=== PATIENT | male | born 1960 | race Caucasian/White ===

== ENCOUNTER 2016-12-27 12:18 | Emergency (ER) | payer OTHER, MEDICAID ==
[2016-12-27 12:44] VITALS: BP 111/82; PULSE 109; RESP 18; TEMP 97.9; O2SAT 94
--- NOTE | 2016-12-27 14:22 | UCPHY ---
H & P Time Seen by Provider: 12/27/16 13:37 Patient Type: Established HPI/ROS: HPI Injury to left foot or ankle. 56-year-old developmentally delayed male here with his caregiver. Patient has a history of a seizure disorder. Caregiver reports that he likely had a seizure and fell out of his bed at 5:00 a.m.. His caregiver was able to get him up and get him to his morning activities but he was complaining of left foot pain. The caregiver reports that he fell out of bed onto a carpeted floor. The caregiver reports there was some vomit in the bed. The patient has otherwise been at his baseline neurologic status and mental status. His only complaint has been the left foot pain. He has not had any further vomiting. He is prone to having breakthrough seizures according to his caregiver. There is no other complaint. ROS: Constitutional: No fever, no chills. No weakness. Musculoskeletal: No back pain. No neck pain. Left foot pain. No other extremity pain. Skin: No rashes. Neurological: No headache. No focal weakness or altered sensation. Review of systems limited on this patient. Past medical history: Epilepsy, gynecomastia, cataracts, developmental delay. Social history: Has caregiver. With caregiver currently. Physical Exam: General Appearance: Alert, no distress. He is sitting in a wheelchair. This patient is responding to questions appropriately and in full sentences. This patient appears well-hydrated and well-nourished. Head: Normocephalic atraumatic. Face: Facial bones are stable on palpation. Eyes: Pupils equal and round and reactive to light, no pallor or injection. No lid erythema or edema. ENT, Mouth: Mucous membranes moist. Dentition is intact. No malocclusion of the jaw. No tongue lacerations or abrasions. Pharynx is clear. The bilateral nasal canals are clear. No septal hematoma. Respiratory: There are no retractions, lungs are clear to auscultation with good air movement bilaterally. Chest wall is stable to AP and lateral palpation. Cardiovascular: Regular rate and rhythm. No murmur. Gastrointestinal: Abdomen is soft and nontender, no masses, bowel sounds normal. Neurological: Motor sensory function is intact. Cranial nerves are normal. Cerebellar function intact. Skin: Warm and dry, no rashes. No lacerations, abrasions or contusions. Musculoskeletal: Neck is supple and nontender. The trachea is midline. No midline cervical, thoracic, lumbar or sacral tenderness on palpation. No flank tenderness on palpation. Left foot exam he has some tenderness over the mid dorsal lateral aspect of the left foot. There is no bony deformity or step-off noted on palpation of this area. No ecchymosis or swelling. The left ankle is nontender on palpation, without gross deformity and without ecchymosis or swelling. Otherwise, extremities are symmetrical, full range of motion. All joints in the bilateral upper and bilateral lower extremities range without pain or impingement except noted. No tenderness on palpation of the long bones in the bilateral upper and bilateral lower extremities except noted. Psychiatric: No agitation. No depression. Database: EKG: Imaging: Left foot and ankle x-ray series: Negative for fracture, subluxation , dislocation. Interpreted by me. Procedures: Emergency department course: X-rays discussed with his caregiver. The left foot was placed in a Krueger boot. Plan will be to have him followed up by his primary care physician in 1- 2 days for re-evaluation and orthopedic referral as needed. Follow-up was discussed with the caregiver. Return to emergency department precautions reviewed. The patient is in a wheelchair. Acute traumatic brain injury unlikely. Other significant traumatic injury unlikely. Patient discharged in good condition with his child care director. Differential Diagnosis: The differential diagnosis on this patient includes but is not limited to left foot sprain, probable breakthrough seizure earlier this morning. Fracture, subluxation, dislocation, other significant traumatic injury unlikely. This represents a partial list of diagnoses considered. These considerations are based on history, physical exam, past history, reassessment and diagnostic testing. Smoking Status: Never smoked Constitutional: Initial Vital Signs Temperature (C) 36.6 C 12/27/16 12:35 Heart Rate 109 H 12/27/16 12:35 Respiratory Rate 18 12/27/16 12:35 Blood Pressure 111/82 H 12/27/16 12:35 O2 Sat (%) 94 12/27/16 12:35 O2 Delivery Mode Room Air Allergies/Adverse Reactions: No Known Allergies Allergy (Verified 12/27/16 12:38) Home Medications: Medication Instructions Recorded Calcium 12/27/16 Calmoseptine Ointment 12/27/16 Divalproex 12/27/16 Fluticasone Nasal 12/27/16 Keppra 12/27/16 Loratadine 12/27/16 Terbinafine 12/27/16 Trazodone HCl 12/27/16 Ventolin Hfa Inhaler 12/27/16 Vitamin D2 12/27/16 Departure - Departure Disposition: Home, Routine, Self-Care Clinical Impression: Sprain of left foot Condition: Good Instructions: Foot Sprain (ED) Additional Instructions: Read and follow provided instructions. Follow-up with your primary care physician in 1-2 days for re-evaluation. Your primary care physician can refer the patient to an ultrasound applications specialist as needed. Return to the emergency department for worsening pain, discoloration or other serious concerns. Referrals: [facility] [Other] - As per Instructions - PQRS PQRS Measurement: Not applicable.
== END 2016-12-27 14:44 | disposition home or self-care (01) ==
LOC: CED 12:18
DX: S93.402A Sprain of unspecified ligament of left ankle, initial encounter (principal); W06.XXXA Fall from bed, initial encounter; Y92.003 Bedroom of unspecified non-institutional (private) residence as the place of occurrence of the external cause
CPT/HCPCS: 73610; 73630; G0463; L4386; 99214-PO

== ENCOUNTER 2017-04-09 12:29 | Emergency (ER) | payer OTHER, MEDICAID ==
[2017-04-09 12:46] VITALS: RESP 16; O2SAT 97
--- NOTE | 2017-04-09 12:55 | EDPHY ---
H & P Stated Complaint: pt fell walking and hit head on drywall/scrapes/denies neck pain/loc or oth HPI/ROS: HPI CHIEF COMPLAINT: Fall, head injury HISTORY OF PRESENT ILLNESS: This patient 57-year-old male, history of glaucoma , urethral stricture, seizure disorder, Mentally Challenged, lives in a custodial with a advanced seal delivery system, he had unwitnessed fall today. With head strike against a wall. He has a hematoma to the top of his head. He is minimally verbal. He denies any complaints at this time. Per the caretakers neurological exam is at baseline. Denies neck pain. Chest pain or shortness of breath. No seizure activity witnessed and no post ictal state. Per the advanced seal delivery system tetanus shot is up-to-date. Rag Production Worker bedside does tell me that he is a fall risk and falls often. This was unwitnessed fall but no seizure activity no postictal state. Past Medical History: Gynecomastia, seizure disorder, mentally challenged Past Surgical History: No recent surgical history Social History: Lives in a custodial, advanced seal delivery system bedside Family History: Noncontributory ROS REVIEW OF SYSTEMS: A comprehensive 10 point review of systems is otherwise negative aside from elements mentioned in the history of present illness. Exam Constitutional appears well nontoxic, triage nursing summary reviewed, vital signs reviewed, awake/alert. Eyes normal conjunctivae and sclera, EOMI, PERRLA. HENT head/neck: Hematoma to the forehead with abrasion, hematoma to the top of the scalp, otherwise unremarkable head and neck exam, no midline cervical spine pain, no step-offs, no crepitus moist mucus membranes, no epistaxis, neck supple/ no meningismus, no raccoon eyes. Respiratory clear to auscultation bilaterally, normal breath sounds, no respiratory distress, no wheezing. Cardiovascular rate normal, regular rhythm, no murmur, no edema, distal pulses normal. Gastrointestinal soft, non-tender, no rebound, no guarding, normal bowel sounds, no distension, no pulsatile mass. Genitourinary no CVA tenderness. Musculoskeletal no midline vertebral tenderness, full range of motion, no calf swelling, no tenderness of extremities, no meningismus, good pulses, neurovascularly intact. Skin pink, warm, & dry, no rash, skin atraumatic. Neurologic at neurological baseline, awake, alert, moves all extremities.. Psychiatric normal mood/affect. Heme/Lymph/Immune no lymphadenopathy. Differential Diagnosis: Includes but is not limited to in a particular, fall, closed head injury, concussion, intracranial bleed, skull fracture, soft tissue injury, scalp contusion Medical Decision Making: Plan for this patient CT head without contrast for trauma. Re-evaluation: CT scan of the head without IV contrast for trauma. The results of the study are negative for acute traumatic injury The study was read by Dr. Castro I viewed the images myself on the PACS system. Source: Patient - Personal History Current Tetanus/Diphtheria Vaccine: Yes Tetanus Vaccine Date: within 10 years - Medical/Surgical History Hx Asthma: No Hx Chronic Respiratory Disease: No Hx Diabetes: No Hx Cardiac Disease: No Hx Renal Disease: No Hx Cirrhosis: No Hx Alcoholism: No Hx HIV/AIDS: No Hx Splenectomy or Spleen Trauma: No Other PMH: CATARACT, EPILEPSY, GYNECOMASTIA, ASPIRATION, INCONTINENCE, DEV DELAY , OSTEOPENIA, URETHRAL STRICTURE hpylori/ulcers - Social History Smoking Status: Never smoked Constitutional: Initial Vital Signs Temperature (C) 36.9 C 04/09/17 12:42 Heart Rate 93 04/09/17 12:42 Respiratory Rate 16 04/09/17 12:42 Blood Pressure 122/89 H 04/09/17 12:42 O2 Sat (%) 97 04/09/17 12:42 O2 Delivery Mode Room Air Allergies/Adverse Reactions: No Known Allergies Allergy (Verified 04/09/17 12:39) Home Medications: Medication Instructions Recorded Calcium 12/27/16 Calmoseptine Ointment 12/27/16 Divalproex 12/27/16 Fluticasone Nasal 12/27/16 Keppra 12/27/16 Loratadine 12/27/16 Terbinafine 12/27/16 Trazodone HCl 12/27/16 Ventolin Hfa Inhaler 12/27/16 Vitamin D2 12/27/16 AMOXICILLIN 04/09/17 Clarithromycin 04/09/17 Omeprazole 04/09/17 Oxybutynin 04/09/17 Departure - Departure Disposition: Home, Routine, Self-Care Clinical Impression: Fall Qualifiers: Encounter type: initial encounter Qualified Code(s): W19.XXXA - Unspecified fall, initial encounter Head injury Qualifiers: Encounter type: initial encounter Qualified Code(s): S09.90XA - Unspecified injury of head, initial encounter Condition: Good Instructions: Fall Prevention for Older Adults (ED), Head Injury (ED), Concussion (ED) Additional Instructions: 1. Return emergency room if you have any worsening symptoms questions or concerns includes severe headache, vomiting or not acting right. Seizures.
[2017-04-09 14:14] VITALS: BP 115/83; PULSE 72; TEMP 98.6
== END 2017-04-09 14:14 | disposition home or self-care (01) ==
LOC: CED 12:29
DX: S09.90XA Unspecified injury of head, initial encounter (principal); W01.198A Fall on same level from slipping, tripping and stumbling with subsequent striking against other object, initial encounter; Y92.89 Other specified places as the place of occurrence of the external cause
CPT/HCPCS: 70450-PO

== ENCOUNTER 2017-05-18 15:56 | Emergency (ER) | payer OTHER, MEDICAID ==
[2017-05-18 16:16] VITALS: BP 129/94; PULSE 71; RESP 18; TEMP 97.7; O2SAT 96
--- NOTE | 2017-05-18 17:22 | EDPHY ---
H & P Time Seen by Provider: 05/18/17 16:34 HPI/ROS: This patient is developmentally delayed and not effectively verbal. He is brought in by his school childcare attendant, Zev for evaluation of left hand swelling that he noticed over the last 24 hours. There is also a contusion in the center of the area of swelling-dorsum of left hand. His sales and service engineer reports that it does not seem to be causing him pain. The sales and service engineer is unaware of any specific trauma to the area. Patient has history of a fracture in 2013 of the same hand- small fracture to metacarpal or finger per sales and service engineer. ROS: No fevers or chills. Musculoskeletal: No other extremity complaints or swelling. Again no known trauma. Neuro: Patient is at baseline per sales and service engineer terms of movement of mood. 5 point ROS is otherwise negative Past Medical/Surgical History: Developmentally delayed-is unable to communicate symptoms. Smoking Status: Never smoked Physical Exam: Physical Exam Vital signs are normal. General: No acute distress HEENT: Atraumatic. Eyes: Pupils equal and react to light. Extraocular motions are intact. Lungs: No respiratory distress. Cardiac: Brisk capillary refill is intact throughout. Extremities: Atraumatic normal except for left hand Left hand: Patient has mild swelling to the dorsum of the hand over the metacarpals with a nickel size contusion in the center of this that is mild. He does not wince with compression of the hand. He does not withdraw his hand. There is no evidence of wrist deformity or ecchymosis or tenderness to the wrist. Skin: No rash or pallor. No erythema or warmth to touch to the affected hand. Neuro: Alert with no overt sensorimotor deficits to the affected hand. Initial differential diagnosis: Hand contusion versus fracture versus sprain Constitutional: Initial Vital Signs Temperature (C) 36.5 C 05/18/17 16:12 Heart Rate 71 05/18/17 16:12 Respiratory Rate 18 05/18/17 16:12 Blood Pressure 129/94 H 05/18/17 16:12 O2 Sat (%) 96 05/18/17 16:12 O2 Delivery Mode Room Air Allergies/Adverse Reactions: No Known Allergies Allergy (Verified 05/18/17 16:15) Home Medications: Medication Instructions Recorded Calcium 12/27/16 Calmoseptine Ointment 12/27/16 Divalproex 12/27/16 Fluticasone Nasal 12/27/16 Keppra 12/27/16 Loratadine 12/27/16 Terbinafine 12/27/16 Trazodone HCl 12/27/16 Ventolin Hfa Inhaler 12/27/16 Vitamin D2 12/27/16 AMOXICILLIN 04/09/17 Clarithromycin 04/09/17 Omeprazole 04/09/17 Oxybutynin 04/09/17 MDM/Departure - MDM Diagnostics: Hand x-ray: Evidence of old fracture of base of proximal phalanx 3rd through 5th finger very small. No acute fractures are appreciated. Imaging Results: Imaging Impressions Hand X-Ray 05/18/17 16:18 Impression: Negative for acute abnormality. Degenerative changes. Healed fifth metacarpal fracture. Imaging: I viewed and interpreted images myself ED Course/Re-evaluation: I counseled sales and service engineer regarding patient's hand contusion-no evidence of acute fracture or other concerning findings. Suggested treating him with ice and elevation. Appreciate no other evidence of trauma sales and service engineer seems entirely appropriate with patient. I do Not suspect any abuse - Depart Disposition: Home, Routine, Self-Care Clinical Impression: Contusion, hand Qualifiers: Encounter type: initial encounter Laterality: left Qualified Code(s): S60.222A - Contusion of left hand, initial encounter Condition: Good Instructions: Contusion in Adults (ED) Additional Instructions: Diagnosis: Hand contusion Plan: Ice 20 minutes at a time to 3 times a day for a few days. Elevate the hand when possible Symptoms should improve over the next 3-7 days. Referrals: NONE *PRIMARY CARE P,. [Primary Care Provider] - As per Instructions
== END 2017-05-18 17:34 | disposition home or self-care (01) ==
LOC: CED 15:56
DX: M79.81 Nontraumatic hematoma of soft tissue (principal)
CPT/HCPCS: 73130-PO

== ENCOUNTER 2017-08-21 18:33 | Emergency (ER) | payer OTHER, MEDICAID ==
[2017-08-21 18:51] VITALS: BP 113/68; PULSE 93; RESP 16; TEMP 97.7; O2SAT 97
--- NOTE | 2017-08-21 19:05 | EDPHY ---
H & P Time Seen by Provider: 08/21/17 18:47 HPI/ROS: This patient has a history of developmental delay and lives in adult shelter accompanied by his commercial lines account executive tonight after a minor head injury yesterday. The patient has very limited verbal capacity so the history is primarily by the commercial lines account executive. The commercial lines account executive explains I yesterday the patient went to abruptly sit into a chair that was farther back any anticipated and fell to the ground bumping his forehead against the ground. This was witnessed by the commercial lines account executive and there was no loss of consciousness. The patient immediately got up put his hand to his forehead weight sustained a minor abrasion from fall to carpeted floor. His behavior has been normal since the fall. The commercial lines account executive clean the abrasion with soapy water and applied bacitracin or similar antibacterial ointment. The care facility has a policy of having the patient evaluated after any head injury so today the commercial lines account executive brought the patient in by private vehicle for further evaluation. The patient is not indicated in the overt head pain. He has been eating and drinking normally. ROS: Limited by patient's baseline cognitive limitations but provided as possible by his commercial lines account executive Constitutional: No fevers or other complaints HEENT: No nasal injury or epistaxis. No dental injuries noted by commercial lines account executive. No other complaints Neuro: No apparent headache. No seizure activity. No other complaints Musculoskeletal: No apparent neck or back pain he is walking without difficulty since the event. Pulmonary: No difficulty breathing. No evidence shortness of breath since the fall Cardiovascular: No pallor. Integumentary: Abrasion of forehead as per HPI. Otherwise negative GI: No vomiting 10 point ROS is otherwise negative Past Medical/Surgical History: Developmentally delayed Seizures-generalized tonic-clonic GERD Smoking Status: Never smoked Physical Exam: Physical exam: Vital signs are normal General: Patient is in no acute distress. HEENT: Is no external evidence of trauma on exam except for 2 very superficial abrasions 3 cm and 2 cm circular located just left of center patient forehead with a very small hematoma underlying the 2 cm abrasion with no underlying bony tenderness or step-off. Nose atraumatic. Ears: Clear bilaterally with no hemotympanum. Oropharynx: No dental trauma or malocclusion. No intraoral lacerations. Eyes: Pupils are equal and reactive to light. Extraocular motions are intact. Optic fundi: Poorly visualized due to poor cooperation Neck: Trachea is midline with no stridor. The patient has no midline neck tenderness and retains a full range of motion without increase in pain. Lungs: Clear to auscultation bilaterally no chest wall tenderness Cardiac: Regular rate and rhythm no murmur gallop or rub. Abdomen: Soft and nontender Back: Nontender Extremities: Atraumatic Neuro: Patient is alert.. Cranial nerves II through XII grossly intact. Cerebellar exam is normal as judged by ability to ambulate at baseline. No sensory or motor deficits are appreciated. Initial differential diagnosis: Minor head injury with forehead abrasions. Doubt concussion. Doubt cerebral contusion. No clinical evidence of bony injury or other concerning findings Constitutional: Initial Vital Signs Temperature (C) 36.5 C 08/21/17 18:47 Heart Rate 93 08/21/17 18:47 Respiratory Rate 16 08/21/17 18:47 Blood Pressure 113/68 08/21/17 18:47 O2 Sat (%) 97 08/21/17 18:47 O2 Delivery Mode Room Air Allergies/Adverse Reactions: No Known Allergies Allergy (Verified 05/18/17 16:15) Home Medications: Medication Instructions Recorded Calcium 12/27/16 Calmoseptine Ointment 12/27/16 Divalproex 12/27/16 Keppra 12/27/16 Loratadine 12/27/16 Trazodone HCl 12/27/16 Ventolin Hfa Inhaler 12/27/16 Vitamin D2 12/27/16 Omeprazole 04/09/17 Oxybutynin 04/09/17 ACETAMINOPHEN 08/21/17 MDM/Departure - [facility] ED Course/Re-evaluation: Patient's neuro exam is limited by his significant baseline cognitive deficits but no focal deficits are appreciated. Similarly, the patient's behaviors been entirely baseline per report of the commercial lines account executive. Appreciate no evidence of bony injury on exam or other concerning findings. Patient's caretakers given head injury precaution instructions with a plan to use Tylenol if he seems to indicate any discomfort and also he is instructed in wound care of the minor forehead abrasions. - Depart Disposition: Home, Routine, Self-Care Clinical Impression: Minor head injury without loss of consciousness Qualifiers: Encounter type: initial encounter Qualified Code(s): S09.90XA - Unspecified injury of head, initial encounter Forehead abrasion Qualifiers: Encounter type: initial encounter Qualified Code(s): S00.81XA - Abrasion of other part of head, initial encounter Condition: Good Instructions: Head Injury (ED), Abrasion (ED) Additional Instructions: Diagnosis: 1. Minor head injury 2. Forehead abrasion Plan: Clean abrasions daily and apply antibacterial ointment Tylenol if he seems to be having headache. Return emergency department if he develops any significant change behavior, has seizure, vomits more than once or other for other concerns. Referrals: NONE *PRIMARY CARE P,. [Primary Care Provider] - As per Instructions
== END 2017-08-21 19:15 | disposition home or self-care (01) ==
LOC: CED 18:33
DX: S00.81XA Abrasion of other part of head, initial encounter (principal); W07.XXXA Fall from chair, initial encounter; Y92.89 Other specified places as the place of occurrence of the external cause

== ENCOUNTER 2017-09-09 05:46 | Emergency (ER) | payer OTHER, MEDICAID ==
[2017-09-09 06:05] VITALS: TEMP 97.5; O2SAT 98
--- NOTE | 2017-09-09 06:07 | EDPHY ---
H & P <Martin Moreno Marlys - Last Filed: 09/09/17 08:50> Smoking Status: Never smoked <Melia Bruner - Last Filed: 09/09/17 23:37> Time Seen by Provider: 09/09/17 05:50 HPI/ROS: CC: Forehead abrasion and neck pain status post unwitnessed fall out of bed HPI: This 57-year-old developmentally delayed male who lives in a [facility] with a patient advocate presents with his patient advocate today after having an unwitnessed fall out of bed just prior to arrival. The caregiver states he heard the thump and he went immediately to the patient's room and he was sitting on the floor. He does not think he had a loss of consciousness. The patient is a poor historian due to his underlying condition and answers no to just about every question. However he did answer what sounded like a yes when asked if he had neck discomfort from the fall. He has an abrasion on his forehead and nose. The caregiver states the patient is on Augmentin for a urinary tract infection. He last had his valproic acid level checked approximately 6 months ago according to the caregiver and he has an appointment with his neurologist on October 12. He has had no other recent illness. Tetanus immunization is up-to -date per caregiver. REVIEW OF SYSTEMS: Constitutional: No fever, no chills. Eyes: No discharge. ENT: No difficulty swallowing. Respiratory: No cough, no shortness of breath. Cardiac: No chest pain, no palpitations. Gastrointestinal: No abdominal pain, no vomiting. Genitourinary: See HPI. Musculoskeletal: See HPI. Skin: See HPI. Neurological: See HPI. (Melia Bruner) Past Medical/Surgical History: Past medical history includes gynecomastia, seizure disorder, developmental delay, urethral stricture, osteoporosis, osteopenia Past surgical history includes eye procedure Family history noncontributory No known drug allergies Medications reviewed and include divalproex acid Primary care provider Dr. Meghna Fernandez and neurologist Dr. Segura (Melia Bruner) Social History: Does not smoke. Lives in a usp. (Melia Bruner) Physical Exam: General Appearance: Alert, minimal distress. HEENT: Normocephalic, abrasion to the mid and left forehead with minimal soft tissue swelling, pupils equally round ENT, Mouth: Mucous membranes are moist. Respiratory: There are no retractions, lungs are clear to auscultation. Cardiovascular: Regular rate and rhythm. Gastrointestinal: Abdomen is soft and nontender, no masses, bowel sounds normal. Neurological: Awake and alert. Mostly nonverbal. Skin: Warm and dry. Musculoskeletal: Neck is supple, mild tenderness to palpation. Extremities: Possible tenderness left hip to pelvic rock (unreliable exam). Psychiatric: There is no agitation. DIFFERENTIAL DIAGNOSIS: After history and physical exam differential diagnosis was considered for but not limited to: Mechanical fall, Supratherapeutic Valproic Acid Level, Intracranial injury, nasal fracture, Cervical Spine fracture, Hip or Pelvis fracture. (Melia Bruner) Constitutional: Initial Vital Signs Temperature (C) 97.5 F 09/09/17 05:50 Heart Rate 86 09/09/17 05:50 Respiratory Rate 18 09/09/17 05:50 Blood Pressure 100/72 09/09/17 05:50 O2 Sat (%) 98 09/09/17 05:50 O2 Delivery Mode Room Air Allergies/Adverse Reactions: No Known Allergies Allergy (Verified 05/18/17 16:15) Home Medications: Medication Instructions Recorded Amox-Clav 500-125 mg Tablet 09/09/17 CALCIUM 09/09/17 Calmoseptine Ointment 09/09/17 Divalproex 09/09/17 Flonase Nasal [place] 09/09/17 IBUPROFEN 09/09/17 IMODIUM A-D 09/09/17 LAMISIL 09/09/17 LEVETIRACETAM 09/09/17 Loratadine 09/09/17 Omeprazole 09/09/17 Oxybutynin Chloride 09/09/17 Tylenol 09/09/17 VITAMIN D 09/09/17 Ventolin Hfa 09/09/17 traZODone 09/09/17 Medical Decision Making - Diagnostics Imaging: Discussed imaging studies w/ call or contact centre manager Radiologist <Martin Moreno - Last Filed: 09/09/17 08:50> <Melia Bruner - Last Filed: 09/09/17 23:37> - Diagnostics Imaging Results: Imaging Impressions Hip X-Ray 09/09/17 06:07 Impression: No evidence for acute fracture left hip. Pelvis X-Ray 09/09/17 06:07 Impression: No evidence for acute fracture. ED Course/Re-evaluation: 7:[address] and x-rays are reassuring. He has no other complaints. He is moving all extremities and baseline mental status. His abrasion was cleaned and dressed. Will discharge him home. They do not wish to wait for the valproic acid level. We will call them with results and advice whether or not he will need to increase his dose. Staff is not suspicious of seizure. 8:30 a.m. the patient's valproic acid level is normal. His home was called and notified. (aMrtin Moreno) The patient was seen and examined, vital signs reviewed. A CBC, basic metabolic panel, valproic acid level, CT of the head and cervical spine, and plain films of the left hip pelvis were ordered. The patient was signed out to Dr. Martin Moreno pending these results. (Melia Bruner) Differential Diagnosis: Partial list of the Differential diagnosis considered include but were not limited to; fall, abrasion, and although unlikely based on the history and physical exam, I also considered head injury, neck injury, seizure, acute coronary disease . (Martin Moreno) - Data Points Laboratory Results: Laboratory Results 09/09/17 06:25 09/09/17 06:25 Departure <Martin Moreno - Last Filed: 09/09/17 08:50> <Melia Bruner - Last Filed: 09/09/17 23:37> - Departure Disposition: Home, Routine, Self-Care Clinical Impression: Abrasion Fall Qualifiers: Encounter type: initial encounter Qualified Code(s): W19.XXXA - Unspecified fall, initial encounter Condition: Fair Instructions: Fall Prevention (ED) Referrals: MEGHNA MINER [Other] - As per Instructions
[2017-09-09 06:30] LABS: % IMMATURE GRANULYOCYTES 1.7 % (0.0-1.1); ABSOLUTE IMMATURE GRANULOCYTES 0.12 10^3/uL (0.00-0.10); ADD DIFF? NO; ADD MORPH? NO; ADD SCAN? NO; ATYPICAL LYMPHOCYTE FLAG 0 (0-99); FRAGMENT RBC FLAG 0 (0-99); HEMATOCRIT 43.3 % (40.0-51.0); HEMOGLOBIN 14.2 g/dL (13.7-17.5); LEFT SHIFT FLG 10 (0-99); LIPEMIA HEMOLYSIS FLAG 80 (0-99); MEAN CELL HEMOGLOBIN 29.3 pg (27.9-34.1); MEAN CELL HEMOGLOBIN CONCENTR. 32.8 g/dL (32.4-36.7); MEAN CELL VOLUME 89.3 fL (81.5-99.8); MEAN PLATELET VOLUME 9.1 fL (8.7-11.7); PLATELET CLUMPS FLAG 40 (0-99); PLATELET COUNT 173 10^3/uL (150-400); RED BLOOD CELL COUNT 4.85 10^6/uL (4.40-6.38); RED CELL DISTRIBUTION WIDTH 14.2 % (11.5-15.2)
[2017-09-09 06:45] LABS: ALANINE AMINOTRANSFERASE 15 IU/L (21-72); ALBUMIN 2.9 g/dL (3.5-5.0); ALKALINE PHOSPHATASE 59 IU/L (38-126); ANION GAP 13 mEq/L (8-16); ASPARTATE AMINOTRANSFERASE 13 IU/L (17-59); BILIRUBIN,TOTAL 0.2 mg/dL (0.1-1.4); BILIRUBIN-UNCONJUGATED 0.2 mg/dL (0.0-1.1); CALCIUM 9.3 mg/dL (8.5-10.4); CARBON DIOXIDE 25 mEq/l (22-31); CHLORIDE 101 mEq/L (97-110); CREATININE 0.6 mg/dL (0.7-1.3); GLOMERULAR FILTRATION RATE > 60; GLUCOSE 78 mg/dL (70-100); POTASSIUM 4.1 mEq/L (3.5-5.2); SODIUM 139 mEq/L (134-144); TOTAL PROTEIN 6.7 g/dL (6.3-8.2)
[2017-09-09 08:32] VITALS: BP 104/70; PULSE 78; RESP 20
== END 2017-09-09 07:30 | disposition home or self-care (01) ==
LOC: CED 05:46
DX: S00.81XA Abrasion of other part of head, initial encounter (principal); W06.XXXA Fall from bed, initial encounter; Y92.009 Unspecified place in unspecified non-institutional (private) residence as the place of occurrence of the external cause
CPT/HCPCS: 70450-PO; 72125-PO; 72170-PO; 73502-PO; 80048-PO; 80076-PO; 85025-PO

== ENCOUNTER 2017-12-27 16:02 | Emergency (ER) | payer OTHER, MEDICAID ==
[2017-12-27 16:13] VITALS: BP 151/74; PULSE 87; RESP 18; TEMP 97.7; O2SAT 96
--- NOTE | 2017-12-27 16:32 | EDPHY ---
H & P Time Seen by Provider: 12/27/17 16:17 HPI/ROS: This patient is developmentally delayed, minimally verbal accompanied by his health claims examiner Zev who cares for him in [facility] [place]. The patient apparently tripped and fell with an abrasion to his forehead. This was unwitnessed by the health claims examiner. The incident occurred few hours prior to arrival the patient has been behaving normally since that time. ROS: Neuro: No agitation per his health claims examiner. No change in his baseline behaviors. Integumentary: No other lacerations abrasions were noted by the health claims examiner GI: No vomiting Musculoskeletal: No other complaints 7 point ROS is limited due to the patient's baseline difficulty with communication the developmental delay but is otherwise negative. Past Medical/Surgical History: Developmental delay Smoking Status: Never smoked Physical Exam: Physical exam: Vital signs are normal General: Patient is in no acute distress. HEENT: The patient has a superficial abrasion to the right forehead without underlying hematoma, deformity bony step-off or significant bony tenderness. Nose atraumatic. Ears: Clear bilaterally with no hemotympanum. Oropharynx: No dental trauma or malocclusion. No intraoral lacerations. Eyes: Pupils are equal and reactive to light. Extraocular motions are intact. Optic fundi: Clear with no papilledema or hemorrhage. Neck: Trachea is midline with no stridor. The patient has no midline neck tenderness and retains a full range of motion without increase in pain. Lungs: Clear to auscultation bilaterally Cardiac: Regular rate and rhythm no murmur gallop or rub. Chest: Nontender. Abdomen: Soft nontender no organomegaly Back: Nontender Extremities: Atraumatic Neuro: The patient is alert. He has 5/5 strength throughout all extremities. No sensory or motor deficits are appreciated. Initial differential diagnosis: Abrasion, minor head injury, concussion Constitutional: Initial Vital Signs Temperature (C) 36.5 C 12/27/17 16:11 Heart Rate 87 12/27/17 16:11 Respiratory Rate 18 12/27/17 16:11 Blood Pressure 151/74 H 12/27/17 16:11 O2 Sat (%) 96 12/27/17 16:11 O2 Delivery Mode Room Air Allergies/Adverse Reactions: No Known Allergies Allergy (Verified 12/27/17 16:11) Home Medications: Medication Instructions Recorded Amox-Clav 500-125 mg Tablet 09/09/17 CALCIUM 09/09/17 Calmoseptine Ointment 09/09/17 Divalproex 09/09/17 Flonase Nasal [place] 09/09/17 IBUPROFEN 09/09/17 IMODIUM A-D 09/09/17 LAMISIL 09/09/17 LEVETIRACETAM 09/09/17 Loratadine 09/09/17 Omeprazole 09/09/17 Oxybutynin Chloride 09/09/17 Tylenol 09/09/17 VITAMIN D 09/09/17 Ventolin Hfa 09/09/17 traZODone 09/09/17 MDM/Departure - MDM ED Course/Re-evaluation: Discussion: Patient with forehead abrasion and unwitnessed fall. Given his minimal verbal status evaluation of potential head injuries difficult without any change in behavior with minimal findings on physical exam I do not feel this patient requires CT imaging or further workup at this time. Counseled his health claims examiner Zev to return emergency department should there be any significant change in his patient's baseline behavior. I instructed him T give the patient Tylenol if he seems of mild discomfort. The patient's wound was clean by our tech, bacitracin and Band-Aid applied. - Depart Disposition: Home, Routine, Self-Care Clinical Impression: Forehead abrasion Qualifiers: Encounter type: initial encounter Qualified Code(s): S00.81XA - Abrasion of other part of head, initial encounter Condition: Good Instructions: Head Injury (ED), Abrasion (ED) Additional Instructions: Diagnosis: Forehead abrasion Plan: Clean abrasion daily. Tylenol if he seems to be having pain Return to the emergency department if he develops agitation, confusion, vomiting more than once or other concerns. Referrals: NONE *PRIMARY CARE P,. [Primary Care Provider] - As per Instructions
== END 2017-12-27 16:40 | disposition home or self-care (01) ==
LOC: CED 16:02
DX: S00.81XA Abrasion of other part of head, initial encounter (principal); W01.0XXA Fall on same level from slipping, tripping and stumbling without subsequent striking against object, initial encounter

== ENCOUNTER 2018-06-24 19:57 | Emergency (ER) | payer OTHER, MEDICAID ==
--- NOTE | 2018-06-24 21:33 | EDPHY ---
H & P Time Seen by Provider: 06/24/18 20:19 HPI/ROS: This patient with developmental delay minimally verbal is accompanied by his peanut roaster who witness this patient's fall in the group living facility with the patient attempted to sit down a chair but missed the chair and then his left leg fold under him he landed on top of it. Since that injury 3 hr ago patient had ibuprofen Tylenol partial relief but still has an antalgic gait and seems to indicate the source of pain to the left lateral leg. If not entirely clear to his peanut roaster if the patient's pain is originating from the knee or the leg. No other injuries. Perioperative Educator brought him in by private vehicle. ROS: Limited due to patient's nonverbal status Musculoskeletal: No other apparent injuries HEENT: No facial injuries Neuro: Patient did not have a head injury per peanut roaster who witness the fall. Integumentary: No lacerations or abrasions appreciated by peanut roaster 7 point ROS as well eyes negative besides was indicated in HPI and ROS. Past Medical/Surgical History: Developmental delay Smoking Status: Never smoked Physical Exam: Physical Exam Vital signs are normal. General: No acute distress HEENT: Atraumatic. Eyes: Pupils equal and react to light. Extraocular motions are intact. Lungs: No respiratory distress. Cardiac: Brisk capillary refill is intact throughout. Pulses are 2+ and symmetric in the affected extremity. Skin: No rash or pallor. Extremities: Atraumatic normal except for left lower extremity Left lower extremity: Patient has mild left lateral leg tenderness with contusion. It is difficult to ascertain if he has left knee tenderness that he retains good range of motion with no effusion. Franca's is negative for laxity. Varus and valgus stress without laxity or parent increase in pain. No patellar swelling or tenderness. Neuro: Alert with no gross deficits. Initial differential diagnosis: Leg contusion, fibular fracture, knee sprain, tibial plateau fracture Constitutional: Initial Vital Signs Temperature (C) 36.5 C 06/24/18 20:14 Respiratory Rate 77 H 06/24/18 20:14 Blood Pressure 146/90 H 06/24/18 20:14 O2 Sat (%) 95 06/24/18 20:14 O2 Delivery Mode Room Air Allergies/Adverse Reactions: No Known Allergies Allergy (Verified 12/27/17 16:11) Home Medications: Medication Instructions Recorded CALCIUM 12/02/17 Calmoseptine Ointment 09/09/17 Divalproex 09/09/17 Flonase Nasal [place] 09/09/17 IBUPROFEN 09/09/17 IMODIUM A-D 09/09/17 LAMISIL 09/09/17 LEVETIRACETAM 09/09/17 Loratadine 09/09/17 Omeprazole 09/09/17 Oxybutynin Chloride 09/09/17 Tylenol 09/09/17 VITAMIN D 09/09/17 Ventolin Hfa 09/09/17 traZODone 09/09/17 MDM/Departure - MDM Imaging Results: Imaging Impressions Knee X-Ray 06/24/18 20:31 Impression: 1. No acute osseous abnormality seen left knee or left tibia and fibula. 2. Old healed fracture proximal fibular shaft. 3. Soft tissue swelling adjacent to the lateral malleolus. Consider lateral ankle sprain. Tibia/Fibula X-Ray 06/24/18 20:31 Impression: 1. No acute osseous abnormality seen left knee or left tibia and fibula. 2. Old healed fracture proximal fibular shaft. 3. Soft tissue swelling adjacent to the lateral malleolus. Consider lateral ankle sprain. Tib-fib x-rays: Negative for acute fracture by my interpretation Knee x-rays: Normal by my interpretation Imaging: I viewed and interpreted images myself ED Course/Re-evaluation: Michael wrap for comfort to the leg Discussion: Patient's findings are consistent with leg contusion without evidence of fracture or other significant abnormal findings/red flag findings. I counseled peanut roaster patient regarding this. I answered their questions prior to discharge home. The understand the need to return emergency department should he develop significant worsening of symptoms despite treatment plan of Tylenol and ibuprofen, Michael wrap for comfort - Depart Disposition: Home, Routine, Self-Care Clinical Impression: Contusion of leg Qualifiers: Encounter type: initial encounter Laterality: left Qualified Code(s): S80.12XA - Contusion of left lower leg, initial encounter Condition: Good Instructions: Contusion in Adults (ED) Additional Instructions: Diagnosis: Leg contusion Plan: Michael wrap for comfort for the next 2-5 days Ibuprofen Tylenol for discomfort as needed Symptoms should improve over the next 3-7 days. Return for any significant worsening despite treatment plan Follow up primary care physician for any symptoms that persist beyond the next week. Referrals: MEGHNA MINER [Other] - As per Instructions
[2018-06-24 22:06] VITALS: BP 133/94
== END 2018-06-24 21:55 | disposition home or self-care (01) ==
LOC: CED 19:57
DX: S80.12XA Contusion of left lower leg, initial encounter (principal); W19.XXXA Unspecified fall, initial encounter; Y92.9 Unspecified place or not applicable; Y93.9 Activity, unspecified; Y99.9 Unspecified external cause status
CPT/HCPCS: 73562-PO; 73590-PO

== ENCOUNTER 2018-09-12 17:22 | Emergency (ER) | payer OTHER, MEDICAID ==
--- NOTE | 2018-09-12 17:58 | EDPHY ---
H & P Stated Complaint: abrasion to top of head, fell in bathroom Time Seen by Provider: 09/12/18 17:25 HPI/ROS: CHIEF COMPLAINT: Fall HISTORY OF PRESENT ILLNESS: This is a 58-year-old gentleman with history of developmental delay, well known to this emergency department, who presents with his caregiver after a fall. Caregiver reports that the patient was in the bathroom when he heard a crash, when the caregiver arrived the patient was sitting on the floor with his back next to the sink, awake and alert. Patient has abrasions at the vertex of the head. He has been acting normally since the fall. The caregiver does note that over the last 2 weeks the patient has been more agitated than usual. They think it might have been related to a change in his medication, when his Depakote was decreased secondary to an elevated serum level. Patient has not been seen by his primary care physician over the last 2 weeks to investigate other reasons for his increased agitation. Caregiver notes that the patient does at baseline have gait issues and has fallen previously. No reports of chest pain. Caregiver notes no vomiting or diarrhea. No obvious shortness of breath. Patient's appetite has been normal. REVIEW OF SYSTEMS: Unobtainable secondary to the patient's baseline developmental delay. PAST MEDICAL HISTORY: Developmental delay, seizure disorder. SOCIAL HISTORY: Here with a caregiver that he lives with a full-time. Has been with this caregiver for 4 years. VITAL SIGNS Reviewed by me. GENERAL: Well-developed, well-nourished, follow simple commands. Unable to answer questions. HEENT: Superficial abrasions on the vertex of the scalp. Eyes: No icterus, no injection. Pupils equal round reactive to light. Mouth: moist mucous membranes. No intraoral trauma noted. Neck: supple with no adenopathy. Full range of motion. No step-off. Does not appear to be tender. LUNGS: Clear to auscultation bilaterally, no wheezes, rhonchi or rales. CARDIAC: Regular rate and rhythm, no rubs, murmurs or gallops. ABDOMEN: Soft, nontender, nondistended, bowel sounds normal. BACK: No CVA tenderness. EXTREMITIES: No trauma. No edema. Range of motion is normal throughout. Gait is normal per the caregiver. NEURO: Alert, no focal deficits noted. Caregiver notes that the patient's mentation seems normal. SKIN: Warm and dry, no rash. PSYCHIATRIC: Cooperative. - Personal History Tetanus Vaccine Date: within 10 years - Medical/Surgical History Hx Asthma: No Hx Chronic Respiratory Disease: No Hx Diabetes: No Hx Cardiac Disease: No Hx Renal Disease: No Hx Cirrhosis: No Hx Alcoholism: No Hx HIV/AIDS: No Hx Splenectomy or Spleen Trauma: No Other PMH: CATARACT, EPILEPSY, GYNECOMASTIA, ASPIRATION, INCONTINENCE, DEV DELAY , OSTEOPENIA, URETHRAL STRICTURE hpylori/ulcers, METACARPAL FX, GRAND MAL SZ, INCONTINENCE, KYPHOSIS - Social History Smoking Status: Never smoked Constitutional: Initial Vital Signs Temperature (C) 36.8 C 09/12/18 17:28 Heart Rate 72 09/12/18 17:28 Respiratory Rate 16 09/12/18 17:28 Blood Pressure 142/105 H 09/12/18 17:28 O2 Sat (%) 95 09/12/18 17:28 O2 Delivery Mode Room Air Allergies/Adverse Reactions: No Known Allergies Allergy (Verified 09/12/18 17:32) Home Medications: Medication Instructions Recorded CALCIUM 09/09/17 Calmoseptine Ointment 09/09/17 Divalproex 09/09/17 Flonase Nasal [place] 09/09/17 IBUPROFEN 09/09/17 IMODIUM A-D 09/09/17 LAMISIL 09/09/17 LEVETIRACETAM 09/09/17 Loratadine 09/09/17 Omeprazole 09/09/17 Oxybutynin Chloride 09/09/17 Tylenol 09/09/17 VITAMIN D 09/09/17 Ventolin Hfa 09/09/17 traZODone 09/09/17 ACETAMINOPHEN 09/12/18 Calmoseptine Ointment 09/12/18 Debrox Ear drops (*) 09/12/18 Sertraline HCl 09/12/18 Medical Decision Making - Diagnostics EKG Interpretation: 12-LEAD EKG: Please see the full report in [facility]. My interpretation: Normal sinus rhythm Imaging Results: Cervical Spine CT 09/12/18 17:45 Impression: Stable, chronically atrophic, head CT. No acute posttraumatic abnormality identified. 2. CT Cervical Spine Without Contrast History: Trauma. Fall. Technique: Multi-slice ultrathin single breath-hold helical CT through the neck from the skull base through the thoracic inlet without contrast. Soft tissue and bone window evaluation is performed. Sagittal and coronal reconstructions are obtained. Dose reduction techniques were utilized. Findings: The patient's head is tilted to the right and turned to the left. Alignment is anatomic. There is a mild mid cervical levoscoliosis. No fracture or dislocation is identified. There is degenerative disk space narrowing between C5 and C7. There is degenerative vacuum phenomenon between C6 and T1. There is anterior osteophyte formation and ossification of the anterior longitudinal ligament between C3 and T1. Facets are normally aligned and are intact. The skull base - C1 and C1-C2 relationships are normally aligned. 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 The odontoid process is intact. There is no evidence of a prevertebral or epidural hematoma. The cervical thoracic junction is normally aligned. Impression: Nothing acute identified. Results called and discussed with Alexandria Vicente MD, at 09/12/2018 18:39 If there is concern for instability, then consider lateral flexion-extension views, cervical fluoroscopy and/or cervical MRI. General information for patients regarding this examination can be found at [email or web address]. If you have questions or comments about this report, please contact me at [phone](hospital) or [phone] (cell). Head CT 09/12/18 17:45 Impression: Stable, chronically atrophic, head CT. No acute posttraumatic abnormality identified. 2. CT Cervical Spine Without Contrast History: Trauma. Fall. Technique: Multi-slice ultrathin single breath-hold helical CT through the neck from the skull base through the thoracic inlet without contrast. Soft tissue and bone window evaluation is performed. Sagittal and coronal reconstructions are obtained. Dose reduction techniques were utilized. Findings: The patient's head is tilted to the right and turned to the left. Alignment is anatomic. There is a mild mid cervical levoscoliosis. No fracture or dislocation is identified. There is degenerative disk space narrowing between C5 and C7. There is degenerative vacuum phenomenon between C6 and T1. There is anterior osteophyte formation and ossification of the anterior longitudinal ligament between C3 and T1. Facets are normally aligned and are intact. The skull base - C1 and C1-C2 relationships are normally aligned. 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 The odontoid process is intact. There is no evidence of a prevertebral or epidural hematoma. The cervical thoracic junction is normally aligned. Impression: Nothing acute identified. Results called and discussed with Alexandria Vicente MD, at 09/12/2018 18:39 If there is concern for instability, then consider lateral flexion-extension views, cervical fluoroscopy and/or cervical MRI. General information for patients regarding this examination can be found at [email or web address]. If you have questions or comments about this report, please contact me at [phone](hospital) or [phone] (cell). Imaging: Discussed imaging studies w/ call center agent Radiologist ED Course/Re-evaluation: 58-year-old male with history of developmental delay and unwitnessed fall in the bathroom. Of note, the patient's caregiver describes increased agitation over the last 2 weeks. Patient had screening EKG obtained which demonstrates normal sinus rhythm. Laboratory evaluation including a CBC and chemistries was normal. Bedside troponin was negative. Urinalysis has 1+ leukocyte esterase. Microscopic is unavailable at this point , as the urine has been sent to [facility]. Patient also had a Depakote level which was ordered and sent to [facility]. Patient's imaging studies including CT scan of the head and CT cervical spine were negative for any acute findings. Patient's abrasions were cleaned. Patient was discharged in the care of his usual caregiver ambulatory at his baseline. They will follow up with primary care physician and are aware that the Depakote level is pending as is the urine microscopic. Differential Diagnosis: Differential diagnosis of this patient's fall was considered including but not limited to intracranial injury, long bone and pelvic bone fracture, spinal injury, intrathoracic injury, extremity injury, intra-abdominal injury, lacerations, abrasions, and contusions. - Data Points Medications Given: Discontinued Medications Acetaminophen (Tylenol) 650 mg PO EDNOW ONE Stop: 09/12/18 18:55 Last Admin: 09/12/18 19:02 Dose: 650 mg Diphtheria/Tetanus/Acell Pertussis (Boostrix) 0.5 ml IM .ONCE ONE Stop: 09/12/18 18:55 Last Admin: 09/12/18 19:06 Dose: 0.5 ml Point of Care Test Results: CBC CBC Collection Date 09/12/18 CBC Collection Time 18:20 WBC 4.9 RBC 4.86 HGB 14.4 HCT 42.5 PLT 142 Neut # 2.8 Neut 58.4 LYMPH # 1.7 LYMPH 33.7 Other WBC # 0.4 Other WBC 7.9 MCV 87.4 Chemistry 09/12/18 09/12/18 18:59 18:24 POC Sodium 142 mEq/L mEq/L (135-145) POC Potassium 3.5 mEq/L mEq/L (3.3-5.0) POC Chloride 100.0 mEq/L mEq/L (97-110) POC Total CO2 28 mEq/L mEq/L (22-31) POC BUN 7 mg/dL mg/dL (7-23) POC Creatinine 0.9 mg/dL mg/dL (0.7-1.3) POC Glucose 103 mg/dL H mg/dL (70-100) POC Calcium 9.9 mg/dL mg/dL (8.5-10.4) POC Troponin I 0.00 ng/mL ng/mL (0.00-0.08) Urine Dip Collection Date 09/12/18 Collection Time 18:02 Specific [place] (1.002-1.030) 1.015 PH (5.0-7.5) 6.0 Leukocytes (Negative) 1+ Nitrites (Negative) Negative Protein (Negative) Negative Glucose (Negative) Negative Ketones (Negative) Negative Urobilnogen (0.2-1.0 EU) 0.2 Bilirubin (Negative) Negative Blood (Negative) Trace Departure - Departure Disposition: Home, Routine, Self-Care Clinical Impression: Abrasion Head injury Qualifiers: Encounter type: initial encounter Qualified Code(s): S09.90XA - Unspecified injury of head, initial encounter Condition: Fair Instructions: Concussion (ED), Abrasion (ED) Additional Instructions: Watch for any signs of worsening head injury such as significant confusion, seizures, inability to walk, recurrent vomiting, or other concerns. Okay to use Tylenol if needed for concerns regarding pain in the head. Keep the abrasions on the head clean and dry. Patient's Depakote level will be available tomorrow. His urinalysis will also be sent for culture. We will contact you if it is positive. Please follow up with his primary care physician for reexamination if his agitation continues. Follow up with the neurologist as previously scheduled. Referrals: NONE *PRIMARY CARE P,. [Primary Care Provider] - As per Instructions
[2018-09-12] MEDS ORDERED: TDAP ADULT 0.5 ML INJ (BOOSTRIX) IM ONE (18:54)
[2018-09-12] MEDS ORDERED: ACETAMINOPHEN 325 MG TAB PO ONE (18:54)
[2018-09-12 19:35] VITALS: BP 162/83
--- NOTE | 2018-09-14 01:15 | CPEKG ---
Test Reason : OPEN Blood Pressure : / mmHG Vent. Rate : 059 BPM Atrial Rate : 059 BPM P-R Int : 150 ms QRS Dur : 086 ms QT Int : 401 ms P-R-T Axes : 040 -26 002 degrees QTc Int : 398 ms Sinus rhythm Abnormal R-wave progression, early transition Inferior infarct, old Confirmed by Alexandria Vicente ([id number]) on 09/14/2018 1:14:24 AM Referred By: Confirmed By:Alexandria Vicente
== END 2018-09-12 19:29 | disposition home or self-care (01) ==
LOC: CED 17:22
DX: S00.01XA Abrasion of scalp, initial encounter (principal); F89 Unspecified disorder of psychological development; G40.909 Epilepsy, unspecified, not intractable, without status epilepticus; W19.XXXA Unspecified fall, initial encounter; Y92.121 Bathroom in nursing home as the place of occurrence of the external cause; Y93.9 Activity, unspecified; Z23 Encounter for immunization
CPT/HCPCS: 70450-PO; 72125-PO; 80048-PO; 84484-PO

== ENCOUNTER 2018-12-01 21:25 | Emergency (ER) | payer OTHER, MEDICAID ==
[2018-12-01 21:40] VITALS: BP 137/68
[2018-12-01] MEDS ORDERED: SKIN ADHESIVE (DERMABOND) 1 EACH TP ONE (21:40)
--- NOTE | 2018-12-01 22:05 | EDPHY ---
H & P Time Seen by Provider: 12/01/18 21:52 HPI/ROS: HPI Facial laceration. 58-year-old male with his care providers. This patient is developmentally delayed. This patient was sitting down on a couch when he slipped off the edge fell forward to the right side and struck the right lateral brow ridge on a carpeted floor below. No loss of consciousness. He has no complaint of headache. No nausea or vomiting. No change in mental status. No complaint of neck pain. No loss of sensation or weakness in his extremities. No other complaint. He does not take antiplatelet or anticoagulant medications. ROS: Constitutional: No fever, no chills. No weakness. Eyes: No discharge. No changes in vision. Musculoskeletal: No back pain. No neck pain. No extremity pain. Skin: No rashes. Laceration as above. Neurological: No headache. No focal weakness or altered sensation. Past medical history: Mental retardation, gynecomastia, epilepsy, cataracts, incontinence, osteopenia, urethral stricture, pyloric ulcers, kyphosis. Social history: Here with his 2 care providers. No alcohol. Nonsmoker. Physical Exam: General Appearance: Alert, no distress. This patient appears well-hydrated and well-nourished Head: Normocephalic atraumatic. Face: Facial bones are stable on palpation. He has a clean, linear 2 cm laceration in the sagittal plane adjacent to his right lateral brow ridge. Please see wound care note for further details. Eyes: Pupils equal and round and reactive to light, no pallor or injection. No lid erythema or edema. Respiratory: There are no retractions, lungs are clear to auscultation with good air movement bilaterally. Chest wall is stable to AP and lateral palpation. Cardiovascular: Regular rate and rhythm. No murmur. Gastrointestinal: Abdomen is soft and nontender, no masses, bowel sounds normal. Neurological: Motor sensory function is intact. Cranial nerves are normal. Cerebellar function intact. Skin: Warm and dry, no rashes. As above, no abrasions or contusions. Musculoskeletal: Neck is supple and nontender. The trachea is midline. No midline cervical, thoracic, lumbar or sacral tenderness on palpation. No flank tenderness on palpation. Extremities are symmetrical, full range of motion. All joints in the bilateral upper and bilateral lower extremities range without pain or impingement. No tenderness on palpation of the long bones in the bilateral upper and bilateral lower extremities. Psychiatric: Mild baseline agitation. Database: EKG: Imaging: Procedures: Procedure: Laceration repair. Verbal consent was obtained from the patient. The 2 cm facial laceration adjacent to the right lateral brow ridge was not anesthetized. The wound was irrigated, draped and explored to its base with a gloved finger. There were no deep structures involved. No foreign body was identified. The wound was repaired with skin adhesive. The wound repair was tolerated well and there were no complications. The procedure was performed by myself. Emergency department course: The patient has a history of violent outbursts towards care staff. Secondary to this I felt that suturing should be avoided if possible. The wound is clean and linear. The decision was made to close the wound with skin adhesive. After wound care as above, head injury precautions and facial laceration care discussed with the care providers. They feel comfortable taking him home. Follow-up and return to emergency department precautions reviewed. All of their questions were answered. The patient was discharged in good condition with his care providers. Differential Diagnosis: The differential diagnosis on this patient includes but is not limited to facial laceration. Skull fracture, facial fracture, traumatic brain injury, spinal injury, other significant traumatic injury unlikely. This represents a partial list of diagnoses considered. These considerations are based on history , physical exam, past history, reassessment and diagnostic testing. Smoking Status: Never smoked Constitutional: Initial Vital Signs Temperature (C) 36.5 C 12/01/18 21:38 Heart Rate 66 12/01/18 21:38 Respiratory Rate 18 12/01/18 21:38 Blood Pressure 137/68 H 12/01/18 21:38 O2 Sat (%) 95 12/01/18 21:38 O2 Delivery Mode Room Air Allergies/Adverse Reactions: No Known Allergies Allergy (Verified 12/01/18 21:31) Home Medications: Medication Instructions Recorded CALCIUM 09/09/17 Calmoseptine Ointment 09/09/17 Divalproex 09/09/17 Flonase Nasal [place] 09/09/17 IBUPROFEN 09/09/17 IMODIUM A-D 09/09/17 LAMISIL 09/09/17 LEVETIRACETAM 09/09/17 Loratadine 09/09/17 Omeprazole 09/09/17 Oxybutynin Chloride 12/02/17 Tylenol 09/09/17 VITAMIN D 09/09/17 Ventolin Hfa 09/09/17 traZODone 09/09/17 ACETAMINOPHEN 09/12/18 Calmoseptine Ointment 09/12/18 Debrox Ear drops (*) 09/12/18 Sertraline HCl 09/12/18 Departure - Departure Disposition: Home, Routine, Self-Care Clinical Impression: Fall from ground level, Facial laceration Condition: Good Instructions: Skin Adhesive Care (ED), Facial Laceration (ED) Additional Instructions: Read and follow provided instructions. Follow-up with your primary care physician in 2-3 days for re-evaluation as needed. Return to the emergency department for bleeding, vomiting or other serious concerns. Referrals: Patient,NotPresent [Primary Care Provider] - As per Instructions
== END 2018-12-01 22:15 | disposition home or self-care (01) ==
LOC: CED 21:25
PROC: 08QNXZZ Repair Right Upper Eyelid, External Approach (ICD-10-PCS; principal; 2018-12-01)
DX: S01.111A Laceration without foreign body of right eyelid and periocular area, initial encounter (principal); F79 Unspecified intellectual disabilities; W08.XXXA Fall from other furniture, initial encounter; Y92.9 Unspecified place or not applicable; Y99.9 Unspecified external cause status; Y93.9 Activity, unspecified
CPT/HCPCS: 99282-ER